=== PATIENT | female | born 1965 | race Caucasian/White ===

== ENCOUNTER → 2020-03-18 14:01 | Outpatient (BNVA) | payer BC, SELFPAY | PROVIDERS: Visit Provider Nurse Practitioner Family | DX: R30.9 Painful micturition, unspecified (principal); B37.3 Candidiasis of vulva and vagina | CPT/HCPCS: 81000 ==

== ENCOUNTER → 2020-10-21 15:23 | Outpatient (BNVA) | payer OTHER, SELFPAY | PROVIDERS: Visit Provider Nurse Practitioner Family | DX: R31.9 Hematuria, unspecified (principal); N39.0 Urinary tract infection, site not specified | CPT/HCPCS: 87077; 87086; 87184 ==

== ENCOUNTER → 2020-10-30 09:57 | Outpatient (BNVA) | payer OTHER, SELFPAY | PROVIDERS: Visit Provider Nurse Practitioner Family | DX: B95.2 Enterococcus as the cause of diseases classified elsewhere (principal); N39.0 Urinary tract infection, site not specified | CPT/HCPCS: 81000 ==

== ENCOUNTER → 2020-11-11 12:43 | Outpatient (BNVA) | payer OTHER, SELFPAY | PROVIDERS: Visit Provider Nurse Practitioner Family | DX: N39.0 Urinary tract infection, site not specified (principal); B37.3 Candidiasis of vulva and vagina | CPT/HCPCS: 81000 ==

== ENCOUNTER → 2021-05-27 15:19 | Outpatient (BNVA) | payer OTHER, SELFPAY | PROVIDERS: Visit Provider Nurse Practitioner Family | DX: R39.9 Unspecified symptoms and signs involving the genitourinary system (principal); R31.9 Hematuria, unspecified; N30.00 Acute cystitis without hematuria | CPT/HCPCS: 87086 ==

== ENCOUNTER → 2022-03-30 09:45 | Outpatient (BNVA) | payer BC, SELFPAY | PROVIDERS: PCP Nurse Practitioner Family; Visit Provider Nurse Practitioner Family | DX: N30.00 Acute cystitis without hematuria (principal) | CPT/HCPCS: 81000; 87077; 87086; 87184 ==

== ENCOUNTER → 2022-09-13 15:40 | Outpatient (BNVA) | payer BC, SELFPAY | PROVIDERS: PCP Nurse Practitioner Family; Visit Provider Nurse Practitioner Family | DX: N39.0 Urinary tract infection, site not specified (principal); R05.9 Cough, unspecified | CPT/HCPCS: 81000; 87400 ==

== ENCOUNTER → 2023-01-10 14:52 | Outpatient (BNVA) | payer BC, SELFPAY | PROVIDERS: PCP Nurse Practitioner Family; Visit Provider Nurse Practitioner Family | DX: N39.0 Urinary tract infection, site not specified (principal) | CPT/HCPCS: 81000; 87077; 87086; 87184 ==

== ENCOUNTER → 2023-01-25 14:35 | Outpatient (BNVA) | payer BC, SELFPAY | PROVIDERS: PCP Nurse Practitioner Family; Visit Provider Nurse Practitioner Family | DX: N39.0 Urinary tract infection, site not specified (principal) | CPT/HCPCS: 87077; 87086; 87184 ==

== ENCOUNTER → 2023-02-07 09:23 | Outpatient (BNVA) | payer BC, SELFPAY | PROVIDERS: PCP Nurse Practitioner Family; Visit Provider Nurse Practitioner Family | DX: N39.0 Urinary tract infection, site not specified (principal) | CPT/HCPCS: 87086 ==

== ENCOUNTER → 2023-02-16 08:45 | Outpatient (BNVA) | payer BC, SELFPAY | PROVIDERS: PCP Nurse Practitioner Family; Visit Provider Nurse Practitioner Family | DX: N39.0 Urinary tract infection, site not specified (principal); N76.0 Acute vaginitis; B96.89 Other specified bacterial agents as the cause of diseases classified elsewhere | CPT/HCPCS: 81000; 87070; 87205 ==

== ENCOUNTER → 2023-03-30 11:13 | Outpatient (BNVA) | payer OTHER, SELFPAY | PROVIDERS: PCP Nurse Practitioner Family; Visit Provider Nurse Practitioner Family | DX: N39.0 Urinary tract infection, site not specified (principal) | CPT/HCPCS: 81000 ==

== ENCOUNTER 2023-05-26 15:58 | Outpatient (RCR) | payer OTHER, SELFPAY | END 2023-06-21 23:59 | disposition home or self-care (01) | LOC: SPT 15:58 | PROVIDERS: PCP Nurse Practitioner Family; Visit Provider Nurse Practitioner Family | DX: N81.89 Other female genital prolapse (principal) | CPT/HCPCS: 97110; 97161; 97530 ==

== ENCOUNTER 2023-06-22 06:00 | Outpatient (RCR) | payer OTHER, SELFPAY | END 2023-06-28 23:59 | disposition home or self-care (01) | LOC: SPT 06:00 | PROVIDERS: PCP Nurse Practitioner Family; Visit Provider Nurse Practitioner Family | DX: N81.89 Other female genital prolapse (principal) | CPT/HCPCS: 97110 ==

== ENCOUNTER → 2024-10-31 11:31 | Outpatient (BNVA) | payer OTHER, SELFPAY | PROVIDERS: PCP Nurse Practitioner Family; Visit Provider Nurse Practitioner Family | DX: R74.8 Abnormal levels of other serum enzymes (principal); Z12.11 Encounter for screening for malignant neoplasm of colon; Z78.9 Other specified health status | CPT/HCPCS: 80053 ==

== ENCOUNTER 2024-11-13 12:23 | Outpatient (CLI) | payer OTHER, SELFPAY ==
--- NOTE | 2024-11-13 13:00 | XR_ITS ---
WS: [id number] DEXA (DUAL ENERGY X-RAY ABSORPTIOMETRY) Bone mineral density was performed using a [employer] machine. HISTORY: M81.0 - Age-related osteoporosis without current patholog... COMPARISON: None available. Lumbar spine BMD (L1-L4): 1.427 g/cm2 T score: 2.1 Z score: 2.8 Total hip BMD: Left: 1.196 g/cm2. T score: 1.5 Z score: 2.1 Right: 1.239 g/cm2. T score: 1.8 Z score: 2.4 10 year probability of a major osteoporotic fracture is 9.6%. XR/XR DEXA axial skeleton* 10366 IMPRESSION: NORMAL BONE MINERAL DENSITY based upon the WHO classification for females.
== END 2024-11-13 12:24 | disposition home or self-care (01) ==
PROVIDERS: PCP Nurse Practitioner Family; Visit Provider Nurse Practitioner Family
DX: M81.0 Age-related osteoporosis without current pathological fracture (principal)
CPT/HCPCS: 77080

== ENCOUNTER 2024-11-28 07:34 | Day surgery (SDC) | payer OTHER, SELFPAY ==
[2024-11-28 07:56] VITALS: BP 162/102; PULSE 97; RESP 18; TEMP 36.6; O2SAT 96; BMI 31.8
--- NOTE | 2024-11-28 08:01 | W.PM.OPSUD ---
Surgery/Procedure H&P Update DATE OF PROCEDURE: November 28, 2024 DATE H&P PERFORMED: 11/13/24 H&P UPDATE INFORMATION: I have reviewed H&P completed within last 30 days, I have examined patient prior to procedure, No changes to prior documentation, Changes to prior documentation as noted here and Risks and benefits of the procedure reviewed PLANNED PROCEDURE: Operation Date: 11/28/24 09:00 Proposed Procedures p Colonoscopy 27089 G0121 Z12.11(Not Applicable) - Figueroa Silvestre MD
[2024-11-28] MEDS: sodium chloride 0.9% 1,000 ML 15 ML IV (08:02)
--- NOTE | 2024-11-28 08:25 | P.ANESASSM_ITS ---
Pre-Anesthetic Assessment Height/Weight: Height 5 ft 3 in Weight 180 lb Temp Pulse Resp BP Pulse Ox O2 Del Method 97.8 F 97 18 162/102 96 Room Air 11/28/24 07:56 11/28/24 07:56 11/28/24 07:56 11/28/24 07:56 11/28/24 07:56 11/28/24 07:56 Preop Diagnosis: Screening colonoscopy Operation Date: 11/28/24 09:00 Proposed Procedures p Colonoscopy 04806 G0121 Z12.11(Not Applicable) - Figueroa Silvestre MD Was Beta Balbina taken within 24 hours: N/A Was Clonidine taken within 24 hours: N/A Last intake: Intake Last Liquid Date 11/27/24 Last Liquid Time 23:00 Last Solid Date 11/26/24 Last Solid Time 18:00 Social No alcohol and No tobacco Exam alert, oriented x 3, clear to auscultation bilaterally and regular rate & rhythm Airway Submandibular: within normal limits Cervical ROM: within normal limits Mallampati: Class II Dentition: full Anesthetic Plan ASA status: 2 Anesthesia: MAC Other: No prior issues with anesthesia Completed bowel prep On spironolactone for PCOS Denies any cardiac or pulmonary issues Labs reviewed from October and acceptable for procedure METs greater than 4 Plan for MAC anesthesia Medications/Allergies Home Medications ?Medication ?Instructions ?Recorded ?Confirmed ?Last Taken ?Type spironolactone 50 mg tablet 75 mg PO BID 03/18/20 04/05/1611/27/24 History albuterol sulfate 90 mcg/actuation 2 inh inhalation Q6 H PRN shortness 10/01/24 11/28/24 11/24/24 Rx aerosol inhaler of breath or wheezing #8.5 g jessie diphenhydramine HCl 50 mg tablet 50 mg PO DAILY PRN Al lergy Symptoms 11/13/24 11/28/24 11/27/24 History (Benadryl Allergy) ondansetron 8 mg disintegrating 8 mg PO Q8H PRN nausea and 11/19/24 11/28/24 Unknown Rx tablet vomiting #3 tabs Allergies Allergy/AdvReac Type Severity Reaction Status Date / Time No Known Allergies Allergy Verified 11/28/24 07:49 Current Medications Generic Name Dose Route Start Last Admin Trade Name Freq PRN Reason Stop Dose Admin Sodium Chloride 1,000 mls @ 15 mls/hr 11/28/24 07:44 11/28/24 08:02 Sodium Chloride 0.9% IV 11/29/24 07:43 15 mls/hr .Q24H PRN Administration COLONOSCOPY FLUIDS PFSH Anesthesia Surgical History Hx of appendectomy Hx of hysterectomy Hx of bladder repair surgery Family History Grandfather CAD (coronary artery disease) paternal Father CAD (coronary artery disease) Cancer bladder cancer Hyperlipidemia Hypertension Grandmother Cancer paternal: breast cancer Mother Dementia Hyperlipidemia Hypertension Denies family history of Diabetes Chronic kidney disease (CKD) Lung disease Stroke Social History Smoking and tobacco/nicotine status: never used tobacco/nicotine Second hand smoke exposure: No Alcohol intake: never Substance/Drug Use: never Adopted: No Lives independently: Yes Household members: spouse Marital status: Data Anesthesia Cardiac Studies: No Data to Display
[2024-11-28 09:02] VITALS: BP 110/76; PULSE 97; RESP 16; TEMP 36.1; O2SAT 95
[2024-11-28 09:17] VITALS: BP 138/80; PULSE 79; RESP 16; O2SAT 98
--- NOTE | 2024-11-28 09:45 | ANE.PACU2 ---
Inpatient post-anesthesia follow up: Airway intact: Yes Vital signs: Temperature 97 F Pulse Rate 79 Respiratory Rate 16 Blood Pressure 138/80 Pulse Oximetry 98 Oxygen Delivery Me thod Room Air Oxygen Flow Rate Fraction of Inspir ed Oxygen Hydration adequate: Yes Nausea and vomiting: No Pain level: 1 Mental status: Baseline
== END 2024-11-28 09:45 | disposition home or self-care (01) ==
PROVIDERS: PCP Nurse Practitioner Family; Visit Provider Surgery
PROC: 0DJD8ZZ Inspection of Lower Intestinal Tract, Via Natural or Artificial Opening Endoscopic (ICD-10-PCS; CPT 45378; principal; 2024-11-28 09:00)
DX: Z12.11 Encounter for screening for malignant neoplasm of colon (principal); D12.2 Benign neoplasm of ascending colon; Z79.899 Other long term (current) drug therapy
CPT/HCPCS: 45380; 88305; J2704; J3490; J7030

== ENCOUNTER → 2024-12-24 16:05 | Outpatient (BNVA) | payer OTHER, SELFPAY | PROVIDERS: PCP Nurse Practitioner Family; Visit Provider Nurse Practitioner Family | DX: R77.2 Abnormality of alphafetoprotein (principal); R74.8 Abnormal levels of other serum enzymes; R53.83 Other fatigue | CPT/HCPCS: 82977; 83615; 84450; 84460; 85025 ==

== ENCOUNTER 2024-12-31 06:45 | Outpatient (CLI) | payer OTHER, SELFPAY ==
--- NOTE | 2024-12-31 07:00 | US_ITS ---
WS: [id number] Complete ABDOMINAL ULTRASOUND HISTORY: R74.8 - Abnormal levels of other serum enzymes COMPARISON: None available. Liver: 12.9 cm in length. Normal size liver. Hyperechoic mass towards the diaphragmatic surface measures 1.5 x 1.4 x 1.0 cm. No additional abnormalities. No duct dilatation. Portal Vein: Normal hepatopetal flow with monophasic waveform. Gallbladder: Echogenic foci adjacent to the gallbladder is probably within the GI tract. No definite stones are identified. No wall thickening or para cholecystic fluid. CBD: 0.4 cm Pancreas: Normal size and echogenicity. Right kidney: 10.3 cm x 5.4 x 5.5 cm. Cortex:1.0 cm. Normal size and echogenicity. No hydronephrosis or mass. Left kidney: 10.2 cm x 4.2 cm x 4.5 cm. Cortex: 1.1 cm. Normal size and echogenicity. No hydronephrosis or mass. Tiny echogenic foci within the cortex. Could potentially be tiny calcifications. Spleen: 8.8 cm. Normal size. There is a tiny cyst near the splenic hilum. Location is very difficult to determine on ultrasound. Aorta and IVC: Unremarkable abdominal aorta and IVC. US/US abdomen complete* [id number] Impression: 1. Technically difficult abdominal ultrasound. 2. No cholelithiasis identified. 3. Hepatic hemangioma, 1.5 cm. 4. No renal obstruction.
== END 2024-12-31 06:46 | disposition home or self-care (01) ==
PROVIDERS: PCP Nurse Practitioner Family; Visit Provider Nurse Practitioner Family
DX: R74.8 Abnormal levels of other serum enzymes (principal); R10.9 Unspecified abdominal pain; D18.09 Hemangioma of other sites; K76.89 Other specified diseases of liver
CPT/HCPCS: 76700

== ENCOUNTER → 2025-02-20 09:23 | Outpatient (BNVA) | payer OTHER, SELFPAY | PROVIDERS: PCP Nurse Practitioner Family; Visit Provider Nurse Practitioner Family | DX: E78.5 Hyperlipidemia, unspecified (principal); R16.0 Hepatomegaly, not elsewhere classified; R74.8 Abnormal levels of other serum enzymes | CPT/HCPCS: 80053; 80061 ==

== ENCOUNTER → 2025-05-31 07:58 | Outpatient (BNVA) | payer OTHER, SELFPAY | PROVIDERS: PCP Nurse Practitioner Family; Visit Provider Nurse Practitioner Family | DX: E78.5 Hyperlipidemia, unspecified (principal) | CPT/HCPCS: 80053; 80061 ==